=== PATIENT | male | born 1950 | race Two or more races ===

== ENCOUNTER 2020-03-07 02:17 | Emergency (ER) | payer SELFPAY ==
[~2020-03-07] VITALS: Ht 175.3 cm; Wt 98.4 kg
--- NOTE | 2020-03-07 02:20 | NUR ---
BIB EMS C/O F/C DISLODGEMENT, PT ALERT AND RESPONSIVE. NOTED W/ A THREE WAY F/C IN WITH BLOOD IN THE TUBE AND NOT DRIBBING. PT WAS PLACED ON A MONITOR,
[2020-03-07] MEDS ORDERED: LIDOCAINE 2% JEL UROJET 10 ML MM ONE (02:30)
[2020-03-07] MEDS ORDERED: MORPHINE SULFATE INJ 4 MG/ML DISP.SYRIN ONE (02:46)
[2020-03-07] MEDS: MORPHINE SULFATE INJ 4 MG/ML DISP.SYRIN IM ONE (02:50)
[2020-03-07] MEDS: LIDOCAINE 2% JEL UROJET 10 ML MM ONE (02:50)
--- NOTE | 2020-03-07 03:00 | NUR ---
A 22FR THREE WAY F/C INSERTED USING URO JET W/ 50ML REDISH COLOR URINE OUT PUT AND BLADDER IRRIGATION INITIATED. PT TOLERATE THE PROCEDURE WELL.
--- NOTE | 2020-03-07 03:21 | NUR ---
ON ONGOING BLADDER IRRIGATION. PT REPORTED COMFORT. WILL CONT TO MONITOR
[2020-03-07] MEDS ORDERED: MORPHINE SULFATE INJ 10 MG/ML DISP.SYRIN IV ONE (03:30)
--- NOTE | 2020-03-07 03:45 | NUR ---
EMPTIED 2300ML OF PINKISH COLOR URINE FROM THE MONTGOMERY BAG.
--- NOTE | 2020-03-07 04:21 | NUR ---
CALLED [facility] AND SET UP TRANSPORTATION BACK TO THE FACILITY. ETA:[phone]
--- NOTE | 2020-03-07 04:24 | NUR ---
CALLED FACILITY AND SPOKE TO JAROD HUSTON PT'S CONDITION AND DISCHARGE BACK TO THE FACILITY
--- NOTE | 2020-03-07 04:54 | NUR ---
F/C BAG WAS EMTIED W/ 900ML PINK CLEAR OUTPUT
--- NOTE | 2020-03-07 05:20 | NUR ---
project intern FROM [facility] TRANSPORTATION AT THE BED SIDE TO [facility] THE PT BUT PT REFUSED TO GO BACK TO [facility].
--- NOTE | 2020-03-07 06:51 | NUR ---
CALLED [facility] FOR TRANSPOR TO [place]. ETA [phone] OR SOONER.
[2020-03-07 07:47] VITALS: BP 121/75
--- NOTE | 2020-03-07 07:47 | NUR ---
Patient discharged to home in stable condition. Written and verbal after care instructions given. Patient verbalizes understanding of instruction. Pt picked up by transfer.
[2020-03-07] MEDS ORDERED: GLIP5TAB13 PO (18:42)
[2020-03-07] MEDS ORDERED: SITA100T PO (18:42)
[2020-03-07] MEDS ORDERED: PANT40TA2 PO (18:42)
[2020-03-07] MEDS ORDERED: APIX5TAB PO ×2 (18:42)
[2020-03-07] MEDS ORDERED: METO25TA6 PO (18:42)
[2020-03-07] MEDS ORDERED: CARI250T9 PO (18:42)
[2020-03-07] MEDS ORDERED: AZIT250T13 PO (18:42)
[2020-03-07] MEDS ORDERED: INSU100I4 SQ (18:42)
[2020-03-07] MEDS ORDERED: BENA20TA9 PO (18:42)
[2020-03-07] MEDS ORDERED: FURO-144 PO (18:42)
[2020-03-07] MEDS ORDERED: MIRT-73 PO (18:42)
[2020-03-07] MEDS ORDERED: DISU250T7 PO (18:42)
[2020-03-07] MEDS ORDERED: METF-440 PO (18:42)
[2020-03-07] MEDS ORDERED: IPRA3AMP23 IH (18:42)
[2020-03-09] MEDS ORDERED: TAMS-12 PO (11:54)
[2020-03-09] MEDS ORDERED: ALLA266C2 TP (11:54)
[2020-03-09] MEDS ORDERED: Hydrogel Dressing TP ×2 (11:54)
== END 2020-03-07 07:47 | disposition home or self-care (01) ==
LOC: EDBD → ER 02:21
DX: R31.9 Hematuria, unspecified (principal); J44.9 Chronic obstructive pulmonary disease, unspecified; E11.9 Type 2 diabetes mellitus without complications; I11.0 Hypertensive heart disease with heart failure; I50.9 Heart failure, unspecified
CPT/HCPCS: 51700; 96372; 99285; J2270; J3490; A4217

== ENCOUNTER 2020-03-07 18:12 | Inpatient (IN) | payer MEDICARE ==
[~2020-03-07] VITALS: Ht 175.3 cm; Wt 89.8 kg
--- NOTE | 2020-03-07 18:15 | NUR ---
PT BIBRA FROM B&C TO ED BED 03. PER EMS PT'S STILL HAVING BLOOD FROM THE F/C. PT WAS SEEN AND DISCHARGE EARLIER FOR ACCIDENTAL F/C DISLODGEMENT. GOWNED AND PLACED ON MONITOR. STABLE VITALS. AWAITING MD YOO.
--- NOTE | 2020-03-07 18:29 | NUR ---
PT CAME FROM [facility] [id number] [place], [place] [id number] , PCP ROLDAN SOLO.
[2020-03-07] MEDS ORDERED: APIX5TAB PO ×2 (18:42)
[2020-03-07] MEDS ORDERED: CARI250T9 PO (18:42)
[2020-03-07] MEDS ORDERED: SITA100T PO (18:42)
[2020-03-07] MEDS ORDERED: BENA20TA9 PO (18:42)
[2020-03-07] MEDS ORDERED: IPRA3AMP23 IH (18:42)
[2020-03-07] MEDS ORDERED: INSU100I4 SQ (18:42)
[2020-03-07] MEDS ORDERED: AZIT250T13 PO (18:42)
[2020-03-07] MEDS ORDERED: PANT40TA2 PO (18:42)
[2020-03-07] MEDS ORDERED: GLIP5TAB13 PO (18:42)
[2020-03-07] MEDS ORDERED: MIRT-73 PO (18:42)
[2020-03-07] MEDS ORDERED: METO25TA6 PO (18:42)
[2020-03-07] MEDS ORDERED: METF-440 PO (18:42)
[2020-03-07] MEDS ORDERED: DISU250T7 PO (18:42)
[2020-03-07] MEDS ORDERED: FURO-144 PO (18:42)
[2020-03-07] MEDS ORDERED: LIDOCAINE 2% JEL UROJET 10 ML MM ONE ×3 (18:48→20:23)
[2020-03-07 18:55] LABS: BASOPHILS # (AUTO) 0.1 /CMM (0.0-0.2); EOSINOPHILS % (AUTO) 0.5 % (0.0-6.0); HEMATOCRIT 39 % (39-51); HEMOGLOBIN 12.5 g/dL (13.5-17.5); LYMPHOCYTES # (AUTO) 0.9 /CMM (0.8-4.8); LYMPHOCYTES % (AUTO) 9.5 % (20.0-44.0); MEAN CORPUSCULAR HGB CONC 32 g/dl (31.0-36.0); MEAN CORPUSCULAR VOLUME 86 fL (80-96); MONOCYTES # (AUTO) 0.5 /CMM (0.1-1.30); MONOCYTES % (AUTO) 5.9 % (2.0-12.0); NEUTROPHILS # (AUTO) 7.5 /CMM (1.8-8.9); NEUTROPHILS % (AUTO) 83.1 % (43.0-81.0); PLATELET COUNT (AUTO) 292 /CMM (150-450); RED BLOOD CELL COUNT(AUTO) 4.57 MIL/uL (4.5-6.0); WHITE BLOOD COUNT (AUTO) 9.1 K/uL (4.3-11.0)
[2020-03-07 19:08] LABS: ALBUMIN 2.2 g/dL (3.4-5.0); BILIRUBIN,TOTAL 3.4 mg/dL (0.2-1.0); CALCIUM, SERUM 7.7 mg/dL (8.5-10.1); CREATININE 1.1 mg/dL (0.6-1.3); POTASSIUM 3.3 mmol/L (3.5-5.1); TOTAL PROTEIN, SERUM 5.8 g/dL (6.4-8.2)
--- NOTE | 2020-03-07 19:32 | NUR ---
MONTGOMERY CATHETER 22FR INSERTED, 300CC BLOOD TINGED URINE NOTED.
--- NOTE | 2020-03-07 19:35 | NUR ---
REPORT GIVEN TO TRAVELING PHLEBOTOMIST NURSE CHAY FOR VIVIEN.
--- NOTE | 2020-03-07 19:37 | NUR ---
REPORT RECEIVED FROM ANUSHA SEBASTIAN FOR VIVIEN
--- NOTE | 2020-03-07 20:00 | NUR ---
DR MUKHERJEE AT BEDSIDE
[2020-03-07] MEDS ORDERED: MORPHINE SULFATE INJ 4 MG/ML DISP.SYRIN ONE (20:15)
--- NOTE | 2020-03-07 20:15 | NUR ---
URINE COLLECTED AND SENT TO LAB
[2020-03-07] MEDS ORDERED: MORPHINE SULFATE INJ 2 MG/ML DISP.SYRIN IV ONE (20:30)
[2020-03-07 20:43] LABS: APPEARANCE,URINE Cloudy (CLEAR); BILIRUBIN,URINE SMALL (NEGATIVE); BLOOD, URINE Large Ery/uL (NEGATIVE); COLOR,URINE Amber (YELLOW); KETONES,URINE Negative (NEGATIVE); LEUKOCYTE ESTERASE ,URINE Negative (NEGATIVE); NITRITE, URINE Negative (NEGATIVE); PH,URINE 8.5 (5.0-8.0); PROTEIN,URINE 100 mg/dl (NEGATIVE); UGLUCOSE Negative (NEGATIVE); UROBILINOGEN,URINE >=8.0 EU/dL (0.2)
[2020-03-07 20:50] LABS: BACTERIA,URINE Rare /HPF (None Seen); RBC,URINE TOO NUMEROUS TO COUN /HPF (0-2); SQUAMOUS EPITHELIAL CELL,UR Few /HPF (None Seen); WBC,URINE 0-2 /HPF (0-3)
--- NOTE | 2020-03-08 00:09 | NUR ---
REPORT GIVEN TO JAZ OVALLE
--- NOTE | 2020-03-08 00:35 | NUR ---
pt transported to unit on [facility] with emt at bedside. pt is stable for transport. no distress noted.
--- NOTE | 2020-03-08 00:40 | NUR ---
RN NOTES RECEIVED PATIENT VIA GURNEY. PATIENT ORIENTED TO ROOM, VITALS ARE STABLE. NO SOB/ ACUTE RESPIRATORY DISTRESS NOTED. BED IS IN LOWEST LOCKED POSITION WITH SIDE RAILS UP. PATIENT ON CONTINUOUS BLADDER IRRIGATION. A/O X2. CALL LIGHT IS WITHIN REACH. WILL CONTINUE TO MONITOR.
[2020-03-08 01:00] VITALS: BP 152/63
[2020-03-08] MEDS ORDERED: *INSULIN REGULAR(HUMULIN R)HUM 100 UNIT/ML VIAL SQ PRN (01:00)
[2020-03-08] MEDS ORDERED: POTASSIUM CHLORIDE 20 MEQ TAB.PRT.SR PO ONE (01:00)
[2020-03-08] MEDS ORDERED: DEXTROSE 50%-WATER 50 ML DISP.SYRIN IV PRN (01:00)
[2020-03-08] MEDS ORDERED: INSULIN REGULAR, HUMAN 100 UNIT/ML 3 ML VIAL SQ PRN (01:00)
[2020-03-08] MEDS ORDERED: HYDROCODONE/APAP 5/325MG 1 EACH TABLET PO PRN (02:00)
[2020-03-08] MEDS ORDERED: ACETAMINOPHEN 325 MG TABLET PO PRN (04:00)
[2020-03-08] MEDS ORDERED: ZOLPIDEM TARTRATE 5 MG TABLET PO PRN (04:00)
[2020-03-08] MEDS: BLOOD SUGAR DIAGNOSTIC 1 EACH STRIP VI SCH ×4 (06:34→21:53)
--- NOTE | 2020-03-08 06:46 | NUR ---
RN CLOSE NOTES PATIENT IS LAYING IN BED. SATURATING AT 96% ON ROOM AIR. NO SOB/ ACUTE RESPIRATORY DISTRESS NOTED. NO COMPLAINTS OF PAIN AT THE MOMENT. CALL LIGHT IS WITHIN REACH. ON CONTINUOUS BLADDER IRRIGATION. IV ON LEFT FA #20G IS PATENT AND INTACT. BED IS IN LOWEST LOCKED POSITION WITH SIDE RAILS UP SEMIFOWLERS. A/O X2. WILL ENDORSE TO AM NURSE.
--- NOTE | 2020-03-08 07:38 | NUR ---
Paged doc. Osmany to inform , patient noted with bleeding from F/C side. No blood in urine. Per doctor Osmany patient will be on Heparin drip anyway.
[2020-03-08 07:53] LABS: BASOPHILS % (AUTO) 0.5 % (0.0-2.0); HEMATOCRIT 36 % (39-51); HEMOGLOBIN 11.4 g/dL (13.5-17.5); LYMPHOCYTES # (AUTO) 1.1 /CMM (0.8-4.8); LYMPHOCYTES % (AUTO) 15.9 % (20.0-44.0); MEAN CORPUSCULAR HGB CONC 32 g/dl (31.0-36.0); MEAN CORPUSCULAR VOLUME 86 fL (80-96); MONOCYTES # (AUTO) 0.5 /CMM (0.1-1.30); MONOCYTES % (AUTO) 7.6 % (2.0-12.0); NEUTROPHILS # (AUTO) 5.3 /CMM (1.8-8.9); PLATELET COUNT (AUTO) 296 /CMM (150-450); RED BLOOD CELL COUNT(AUTO) 4.17 MIL/uL (4.5-6.0)
[2020-03-08 07:58] LABS: CALCIUM, SERUM 7.7 mg/dL (8.5-10.1); POTASSIUM 3.6 mmol/L (3.5-5.1)
[2020-03-08 08:00] VITALS: BP 114/68
[2020-03-08] MEDS ORDERED: HEPARIN INFUSION/D5W 500 ML IV PRN (08:00)
--- NOTE | 2020-03-08 08:01 | NUR ---
Received call from to start pt on Heparin drip due to DVT on right leg. Patient's weighed on weighting chair and current wait is 198 lb. Heparin form completed per protocol and sent to pharmacy. PTT /INR ordered.
[2020-03-08] MEDS ORDERED: DISULFIRAM 250 MG TABLET PO SCH (09:00)
[2020-03-08] MEDS ORDERED: glipiZIDE 5 MG TABLET PO SCH (09:00)
[2020-03-08] MEDS ORDERED: LINAGLIPTIN 5 MG TABLET PO SCH (09:00)
[2020-03-08] MEDS ORDERED: FUROSEMIDE 40 MG TABLET PO SCH (09:00)
[2020-03-08] MEDS ORDERED: BENAZEPRIL HCL 20 MG TABLET PO SCH (09:00)
[2020-03-08] MEDS: PANTOPRAZOLE 40 MG TABLET.DR PO SCH (09:40)
[2020-03-08 09:41] LABS: BAND % (MANUAL) 1 % (0.0-5.0); LYMPHOCYTES % (MANUAL) 19 % (16-48); MONOCYTES % (MANUAL) 8 % (0-11.0); NEUTROPHILS % (MANUAL) 72 (42-76)
[2020-03-08] MEDS: METOPROLOL TARTRATE 25 MG TABLET PO SCH ×2 (09:41→17:46)
[2020-03-08] MEDS: CARISOPRODOL 350 MG TABLET PO SCH (09:43)
[2020-03-08] MEDS ORDERED: LEVOFLOXACIN (500MG) 500 MG TABLET PO SCH (10:00)
--- NOTE | 2020-03-08 10:12 | NUR ---
Per stop bladder irrigation.
--- NOTE | 2020-03-08 11:30 | NUR ---
Patient seen by doctor Jordan at bedside. A new order to D/c Heparin and wait for 24 hr until bleeding stop.
--- NOTE | 2020-03-08 12:30 | NUR ---
Patient confused , disoriented . Bed alarm activated and charge nurse notified. Patient will transferred close to nursing station if any discharges.
--- NOTE | 2020-03-08 13:10 | NUR ---
Spoke with patient's brother. He states: my brother is confused and it is his baseline
[2020-03-08 16:00] VITALS: BP 92/63
[2020-03-08] MEDS ORDERED: METFORMIN 500 MG TABLET PO SCH (16:30)
--- NOTE | 2020-03-08 19:01 | NUR ---
Patient confused and disoriented. VS are stable on room. Spoke with charge nurse , patient may need a sitter. Noncompliant ;, refused accu-check at 1730. All needs attended , patient kept clean and dry. IV line intact and patent. F/C draining yellow urine, no blood on urine. With small bleeding from penis when he stand up. Will endors to next shift for VIVIEN.
[2020-03-08 20:00] VITALS: BP 90/63
--- NOTE | 2020-03-08 20:00 | NUR ---
RN NOTES RECEIVED PT. AWAKE ON BED, A/OX2, CONFUSED, F/C TEA COLORED URINE, DENIES PAIN, NO SOB, CALL LIGHT WITHIN REACH, PT. NEEDS ATTENDED, SITTER AT BEDSIDE
[2020-03-08 20:30] VITALS: BP 90/63
[2020-03-08] MEDS ORDERED: IV NS 0.9% 1,000 ML IV PRN (21:00)
[2020-03-08] MEDS ORDERED: MIRTAZAPINE SOLUTAB 15 MG/UDTABLET TAB.RAPDIS PO SCH (22:00)
--- NOTE | 2020-03-09 04:00 | NUR ---
RN NOTES INSERTED A NEW LINE ON THE RIGHT FOREARM#222
--- NOTE | 2020-03-09 07:00 | NUR ---
JAZ NOTES AWAKE, DENIES PAIN, NO SOB,MORNING CARE RENDERED, PT. TINO Addendum: 03/09/20 at 0733 by IAIN MELENDEZ RN PTWilber DOAN
[2020-03-09] MEDS: BLOOD SUGAR DIAGNOSTIC 1 EACH STRIP VI SCH ×2 (07:40→11:31)
[2020-03-09 08:00] VITALS: BP 113/48
--- NOTE | 2020-03-09 08:00 | NUR ---
MS SEBASTIAN OPENING NOTES RECEIVED PATIENT IN BED, A/O X2, NO SIGNS OF RESPIRATIORY DISTRESS, RFA 20G NS AT 75ML/HR INFUSING WELL, NO REDNESS OR INFILATION NOTED, SIDE RAILS UP, SACRAL WOUND NOTED. Addendum: 03/09/20 at 1035 by ADRIANNE MATHEWS RN WITH MONTGOMERY CATHETER ATTACHED, DARK RED URINE, NO BLOOD NOTED.
[2020-03-09] MEDS: IPRATROPIUM NEB FS 0.5 MG/2.5 ML AMPUL.NEB NEB SCH ×2 (08:19→12:22)
[2020-03-09 08:29] LABS: BASOPHILS % (AUTO) 0.4 % (0.0-2.0); EOSINOPHILS % (AUTO) 0.1 % (0.0-6.0); HEMATOCRIT 36 % (39-51); HEMOGLOBIN 11.6 g/dL (13.5-17.5); LYMPHOCYTES % (AUTO) 12.8 % (20.0-44.0); MEAN CORPUSCULAR HGB CONC 32 g/dl (31.0-36.0); MEAN CORPUSCULAR VOLUME 86 fL (80-96); MONOCYTES # (AUTO) 0.5 /CMM (0.1-1.30); MONOCYTES % (AUTO) 6.8 % (2.0-12.0); NEUTROPHILS # (AUTO) 6.1 /CMM (1.8-8.9); NEUTROPHILS % (AUTO) 79.9 % (43.0-81.0); PLATELET COUNT (AUTO) 305 /CMM (150-450); RED BLOOD CELL COUNT(AUTO) 4.25 MIL/uL (4.5-6.0); WHITE BLOOD COUNT (AUTO) 7.6 K/uL (4.3-11.0)
[2020-03-09 08:39] LABS: CALCIUM, SERUM 7.8 mg/dL (8.5-10.1); CREATININE 1.2 mg/dL (0.6-1.3); MAGNESIUM 1.4 mg/dL (1.8-2.4); POTASSIUM 4.2 mmol/L (3.5-5.1)
[2020-03-09] MEDS: CARISOPRODOL 350 MG TABLET PO SCH (08:55)
[2020-03-09] MEDS: PANTOPRAZOLE 40 MG TABLET.DR PO SCH (08:55)
[2020-03-09 08:57] VITALS: BP 113/48
[2020-03-09] MEDS: METOPROLOL TARTRATE 25 MG TABLET PO SCH (08:57)
--- NOTE | 2020-03-09 10:06 | NUR ---
WOUND CARE CONSULT: PT PRESENTS WITH STAGE 3 SACRAL ULCER AND BILATERAL LOWER LEG DRY WOUNDS, PRESENT ON ADMISSION. RECOMMENDATIONS MADE FOR SKIN PROTECTION AND WOUND CARE OF SACRAL WOUND. DISCUSSED WITH NURSING STAFF. PT ON STACY ISOFLEX LOW AIRLOSS BED. PT STATES SACRAL WOUND WAS BEING TREATED AT HIS FACILITY. WILL SEE PRN. SALAS IN AGREEMENT WITH PLAN OF CARE. Addendum: 03/09/20 at 1008 by BETTY GRACE WNDNU Amended: Links added.
[2020-03-09] MEDS ORDERED: TAMSULOSIN 0.4 MG CAP.SR.24H PO SCH (10:20)
[2020-03-09] MEDS ORDERED: HYDROGEL DRESSING 90 GM TUBE TP SCH (10:30)
[2020-03-09] MEDS ORDERED: Z GUARD REMEDY 2 OZ OINT TP SCH (10:30)
[2020-03-09] MEDS ORDERED: Z GUARD REMEDY 2 OZ OINT TP PRN (10:30)
[2020-03-09] MEDS ORDERED: HYDROGEL DRESSING 90 GM TUBE TP PRN (10:30)
[2020-03-09] MEDS: Magnesium 1GM/D5W 100ML PREMIX 100 ML IV SCH ×4 (10:54→14:23)
[2020-03-09] MEDS ORDERED: TAMS-12 PO (11:54)
[2020-03-09] MEDS ORDERED: Hydrogel Dressing TP ×2 (11:54)
[2020-03-09] MEDS ORDERED: ALLA266C2 TP (11:54)
[2020-03-09 12:51] LABS: BAND % (MANUAL) 2 % (0.0-5.0); LYMPHOCYTES % (MANUAL) 10 % (16-48); MONOCYTES % (MANUAL) 5 % (0-11.0); NEUTROPHILS % (MANUAL) 82 (42-76); REACTIVE LYMPHOCYTES 1 % (0-0)
--- NOTE | 2020-03-09 17:01 | NUR ---
MS PLASTIC BUBBLE PACKER NOTES DISCHARGED PATIENT IN STRETCHER, AWAKE, CONSCIOUS, COOPERATIVE, COHERENT, NO SIGNS OF RESPIRATORY DISTRESS, MONTGOMERY CATHETER ATTACHED, NO BLOOD PRESENT NOTED, DISCHARGE TO [facility] VIA AMBULANCE.
[2020-03-10] MEDS ORDERED: SILVER SULFADIAZINE 50 GM JAR TP SCH (09:00)
--- NOTE | 2020-03-10 09:31 | NUR ---
INFORMATION SENT:FACESHEET, DISCHARGE SUMMARY, DC PLANNING, PSF FAXED TO:[facility]/[phone] FAX SENT BY [facility]
== END 2020-03-09 16:34 | disposition home or self-care (01) | DRG 699 ==
LOC: ER 18:25 → MED 03-08 00:03
PROVIDERS: ADMIT Internal Medicine; ATTEND Internal Medicine
DX: T83.83XA Hemorrhage due to genitourinary prosthetic devices, implants and grafts, initial encounter (principal); L97.419 Non-pressure chronic ulcer of right heel and midfoot with unspecified severity; I82.401 Acute embolism and thrombosis of unspecified deep veins of right lower extremity; R31.0 Gross hematuria; I11.0 Hypertensive heart disease with heart failure; I50.9 Heart failure, unspecified; J44.9 Chronic obstructive pulmonary disease, unspecified; Z79.4 Long term (current) use of insulin; Z79.84 Long term (current) use of oral hypoglycemic drugs; Z79.899 Other long term (current) drug therapy; Z79.51 Long term (current) use of inhaled steroids; Z79.01 Long term (current) use of anticoagulants; Z87.891 Personal history of nicotine dependence; Z86.718 Personal history of other venous thrombosis and embolism; L97.529 Non-pressure chronic ulcer of other part of left foot with unspecified severity; F03.90 Unspecified dementia, unspecified severity, without behavioral disturbance, psychotic disturbance, mood disturbance, and anxiety; E11.622 Type 2 diabetes mellitus with other skin ulcer; E11.621 Type 2 diabetes mellitus with foot ulcer; L85.3 Xerosis cutis; Z86.19 Personal history of other infectious and parasitic diseases; Y84.6 Urinary catheterization as the cause of abnormal reaction of the patient, or of later complication, without mention of misadventure at the time of the procedure; Y92.099 Unspecified place in other non-institutional residence as the place of occurrence of the external cause
CPT/HCPCS: 36415; 76770-TC; 80048-TC; 80076-TC; 81000-TC; 82962-TC; 83735-TC; 85025-TC; 85610-TC; 85730-TC; 87081-TC; 93970-TC; 94799-TC; A4217; A6248; G0378; J1644; J1815; J2270; J3475; J3490; J7030